=== PATIENT | female | born 1955 | race Caucasian/White ===

== ENCOUNTER 2019-07-23 11:56 | Emergency (ER) | payer MEDICARE, MEDICAID ==
[~2019-07-23] VITALS: Ht 160 cm; Wt 82.9 kg
[~2019-07-23 11:56] MED LIST: ACET500C5 PO; ALBU8.5H8 INH; CEPH-443 PO; CETI10CA PO; FLUT9.9S NASAL
[2019-07-23 12:00] VITALS: Ht 160 cm; Wt 82.9 kg
[2019-07-23] MEDS ORDERED: ALBUTEROL 0.083% (NEB) 2.5 MG/3 ML AMP HHN STA (13:36)
[2019-07-23 15:17] VITALS: BP 133/78; PULSE 78; RESP 20
[2019-07-23] MEDS ORDERED: CEPHALEXIN 500 MG CAP PO ONE (15:30)
== END 2019-07-23 15:26 | disposition home or self-care (01) ==
LOC: FTE 11:56
DX: R07.89 Other chest pain (principal); N30.90 Cystitis, unspecified without hematuria; J45.901 Unspecified asthma with (acute) exacerbation; Z21 Asymptomatic human immunodeficiency virus [HIV] infection status; Z85.528 Personal history of other malignant neoplasm of kidney; Z91.040 Latex allergy status
CPT/HCPCS: 71045; 80053; 81001; 84484; 85025; 93005; 94664